=== PATIENT | male | born 1960 | race Caucasian/White ===

== ENCOUNTER 2018-03-30 13:34 | Emergency (ER) | payer OTHER ==
[~2018-03-30] VITALS: Ht 162.6 cm; Wt 55.8 kg
[2018-03-30] MEDS ORDERED: NORCO 5-325 TA1 EACH PO (14:12)
[2018-03-30] MEDS ORDERED: KEFLEX500 MG PO (14:12)
== END 2018-03-30 14:46 | disposition home or self-care (01) ==
LOC: ED 13:34
DX: S68.127A Partial traumatic metacarpophalangeal amputation of left little finger, initial encounter (principal); W22.8XXA Striking against or struck by other objects, initial encounter; F17.200 Nicotine dependence, unspecified, uncomplicated
CPT/HCPCS: 73140; 80048; 85025; 90471; 90715; 96374; 99283; J0690

== ENCOUNTER 2018-04-28 08:50 | Day surgery (SDC) | payer OTHER ==
[~2018-04-28] VITALS: Ht 162.6 cm; Wt 55.3 kg
[~2018-04-28 08:50] MED LIST: DICLOFENAC SODI50 MG PO; GABAPENTIN600 MG PO; KEFLEX500 MG PO; NORCO 5-325 TA1 EACH PO
--- NOTE | 2018-04-28 11:03 | NUR ---
04/28/18 1103 Karli Krishnamurthy 1050 PT ARRIVED IN PACU AWAKE WITH NO C/O'S.
--- NOTE | 2018-04-30 15:34 | OR ---
[facility] [address], [place] [address] Signed DATE OF OPERATION: 04/28/2018 SURGEON: Jacquelin Keith MD PREOPERATIVE DIAGNOSIS: Avulsion of finger tip, left small. POSTOPERATIVE DIAGNOSIS: Avulsion of finger tip, left small. PROCEDURE PERFORMED: Irrigation and debridement of skin, subcutaneous tissue, and bone, left small finger. HEALTH INFORMATION CLERK: JED Wallis; JLUIS Lacy. Cierra was present for the entire procedure. ANESTHESIA: MAC. BLOOD LOSS: Minimal. BRIEF HISTORY: Jamie is a 57-year-old gentleman, who got his finger caught between the bucket and thumb on an excavator. It amputated the distal aspect of his finger. Initially, the bone fragments were covered by soft tissue; however, this shortly went away and left exposed bone. Risks and benefits of debridement back to a stable soft tissue bed were discussed with him. He elected to proceed. DESCRIPTION OF PROCEDURE: Once consent was obtained, he was taken to the operating room. After adequate anesthesia, he was placed on the operating room table. All downside pressure points well-padded. The left hand was prepped and draped in the standard sterile fashion. A finger tourniquet was fashioned out of the glove and rolled proximally. The end of the finger was then debrided sharply back to a good soft tissue surface. The piece of bone that was taking out on the ulnar aspect was then loosened from the surrounding soft tissue using the [place] elevator. It was then removed. The other bone fragments associated with that were removed as well. Excellent bleeding soft tissue bed was obtained. It was copiously irrigated and dressed with a saline soaked sponge and tube Electronically Signed By: JACQUELIN KEITH MD 04/30/18 1534 PATIENT NAME: JAMIE MANCINI OPERATIVE REPORT DATE OF : 60 REPORT #: [id number] PHYSICIAN: JACQUELIN KEITH MD PCP: SYLVIA HANNAH REPORT IS CONFIDENTIAL AND NOT TO BE RELEASED WITHOUT AUTHORIZATION [facility] [address] [place] [id number] Signed genarouze. He tolerated the procedure well. All sponge, needle, and instrument counts were correct. Jacquelin Keith MD BA/MODL /[id number] Copies: ~ Electronically Signed By: JACQUELIN KEITH MD 04/30/18 1534 PATIENT NAME: JAMIE MANCINI OPERATIVE REPORT DATE OF : 60 REPORT #: [id number] PHYSICIAN: JACQUELIN KEITH MD PCP: SYLVIA HANNAH REPORT IS CONFIDENTIAL AND NOT TO BE RELEASED WITHOUT AUTHORIZATION
== END 2018-04-28 11:25 | disposition home or self-care (01) ==
LOC: DS 08:50
PROVIDERS: Specialist
PROC: 0PBV0ZZ Excision of Left Finger Phalanx, Open Approach (ICD-10-PCS; principal; 2018-04-28 11:00)
DX: S68.617A Complete traumatic transphalangeal amputation of left little finger, initial encounter (principal); Z79.1 Long term (current) use of non-steroidal anti-inflammatories (NSAID); Z79.899 Other long term (current) drug therapy
CPT/HCPCS: 01830; J0690; J1885; J2250; J2704; J3010; J7120